=== PATIENT | female | born 1990 | race Caucasian/White ===

== ENCOUNTER 2017-09-07 10:53 | Emergency (ER) | payer SELFPAY ==
[2017-09-07 11:18] VITALS: TEMP 97.7; BMI 28.5
[2017-09-07] MEDS ORDERED: SODIUM CHLORIDE 1,000 ML IV ONE (11:30)
--- NOTE | 2017-09-07 11:36 | PDOC ---
History of Present Illness - General History Source: Patient, Family Exam Limitations: No Limitations - History of Present Illness Initial Comments: 09/07/17 11:39 The patient is a 26 year old female, accompanied by brother, with no significant past medical history, who presents to the emergency department DARRONA s/p witnessed syncopal episode earlier this morning. 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 Patient reports upon getting up she passed out for approximately 1 minute. As per brother, he caught her before she fell to the ground and the patient did not hit her head. Patient denies any residual headache, dizziness, changes in vision, or changes in speech. She denies any shortness of breath, diaphoresis, or palpitations. She denies any nausea, vomiting, fever, or chills. The patient reports 2 syncopal episodes in the past, the first 3 years ago while due to low blood pressure, and the second in May 2017 due to ear issue. Patient reports during her prior episodes she did not experience the chest discomfort, but rather a dizziness as if the room were spinning. The patient denies any history of anemia or thyroid disorders. Patient endorses travel to [place] 2 months ago and denies any sick contacts or recent illness. Allergies: NKDA Past Surgical History: None reported. Social History: Non smoker. No ETOH or recreational drug use. <Olaf Kelly - Last Filed: 09/07/17 11:39> <Gómez Pike - Last Filed: 09/07/17 13:59> - General Chief Complaint: Syncope/Near Syncope Stated Complaint: SYNCOPE Time Seen by Provider: 09/07/17 11:15 Past History <Olaf Kelly - Last Filed: 09/07/17 11:39> - Past Medical History COPD: No - Suicide/Smoking/Psychosocial Hx Smoking History: Never smoked <Gómez Piek - Last Filed: 09/07/17 13:59> - Past Medical History Allergies/Adverse Reactions: Allergies Allergy/AdvReac Type Severity Reaction Status Date / Time No Known Allergies Allergy Verified 09/07/17 11:16 Home Medications: Ambulatory Orders Nitrofurantoin Monohyd/M-Cryst [Macrobid -] 100 mg PO BID #14 capsule 09/07/17 Review of Systems - Review of Systems Constitutional: No: Chills, Fever, Night Sweats, Unintentional Wgt. Loss, Unexplained wgt Loss HEENTM: No: Recent change in vision Respiratory: No: Cough, Shortness of Breath, SOB with Exertion Cardiac (ROS): Yes: Chest Pain, Lightheadedness. No: Edema, Palpitations ABD/GI: No: Diarrhea, Nausea, Vomiting : No: Dysuria, Frequency Neurological: No: Headache, Weakness, Ataxia Endocrine: No: Symptoms Reported All Other Systems: Reviewed and Negative <Gómez Pike - Last Filed: 09/07/17 13:59> *Physical Exam - Vital Signs Last Vital Signs Temp Pulse Resp BP Pulse Ox 97.7 F 87 18 122/83 99 09/07/17 11:16 09/07/17 11:16 09/07/17 11:16 09/07/17 11:16 09/07/17 11:16 - Physical Exam Comments: 09/07/17 11:39 GENERAL: The patient is awake, alert, and fully oriented, in no acute distress. HEAD: Normal with no signs of trauma. EYES: Pupils equal, round and reactive to light, extraocular movements intact, sclera anicteric, conjunctiva clear with no pallor. ENT: Ears normal, nares patent, oropharynx clear without exudates. Moist mucous membranes. NECK: Normal range of motion, supple without lymphadenopathy, JVD, or masses. LUNGS: Breath sounds equal, clear to auscultation bilaterally. No wheeze/ crackles. HEART: Regular rate and rhythm, normal S1 and S2 without murmur or rub. ABDOMEN: Soft/nontender/nondistended. BS wnl. No guarding or rebound. No palpable masses. No hepatosplenomegaly. EXTREMITIES: Normal range of motion, no edema. No clubbing or cyanosis. No cords, erythema, or tenderness. NEUROLOGICAL: Cranial nerves II through XII grossly intact. Normal speech, normal gait. PSYCH: Normal mood, normal affect. SKIN: Warm, Dry, normal turgor, no rashes or lesions noted. <Olaf Kelly - Last Filed: 09/07/17 11:39> - Vital Signs Last Vital Signs Temp Pulse Resp BP Pulse Ox 97.7 F 87 18 122/83 99 09/07/17 11:16 09/07/17 11:16 09/07/17 11:16 09/07/17 11:16 09/07/17 11:16 <Gómez Pike - Last Filed: 09/07/17 13:59> Heart Score/ECG Review #1 ECG reviewed & interpreted by me at: 11:03 General ECG Interpretation: Sinus Rhythm, Normal Rate (83), Normal Intervals ( GA 146, qtc 423), No acute ischemic changes <Gómez Pike - Last Filed: 09/07/17 13:59> ED Treatment Course - LABORATORY CBC & Chemistry Diagram: 09/07/17 11:33 09/07/17 11:33 <Gómez Pike - Last Filed: 09/07/17 13:59> Medical Decision Making - Medical Decision Making 09/07/17 11:34 A portion of this note was documented by scribe services under my direction. I have reviewed the details of the note, within reason, and agree with the documentation with the following case summary and management plan written by me. 26-year-old healthy female presents with syncope with prodrome. 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 No injury, had some associated chest tightness, now resolved. No seizure-like activity, no recent infections or dehydration. Has had 2 prior syncopal episodes in the past, 1 while and the other earlier this year which led to an admission on telemetry, ultimately diagnosed with peripheral vertigo. At baseline, patient has no exertional chest pain or dyspnea, she did travel to months ago but has no signs or symptoms of DVT. Vital signs normal, well-appearing Heart is regular without murmur Lungs are clear Legs have no swelling or calf tenderness 26-year-old female with interview with prodrome, now resolved and hemodynamically stable. No red flags on history or physical exam, recent travel the presentation is not consistent with PE. Check labs and urine EKG IV fluids Reassess 09/07/17 13:55 Labs are within normal limits, urine negative, urinalysis notable for blood and elevated white blood cells with leuk esterase. Patient feels well, is ambulating steadily and comfortably in the emergency department. Agrees with discharge plan, we'll treat with antibiotics for UTI, understands return criteria. <Gómez Pike - Last Filed: 09/07/17 13:59> *DC/Admit/Observation/Transfer - Attestations Scribe Attestion: 09/07/17 11:40 Documentation prepared by Olaf Kelly, acting as medical hospital sales for Gómez Pike MD. <Olaf Kelly - Last Filed: 09/07/17 11:39> <Gómez Pike - Last Filed: 09/07/17 13:59> Diagnosis at time of Disposition: Syncope and collapse UTI (urinary tract infection) Qualifiers: Urinary tract infection type: acute cystitis Hematuria presence: with hematuria Qualified Code(s): N30.01 - Acute cystitis with hematuria - Discharge Dispostion Disposition: HOME Condition at time of disposition: Improved - Prescriptions Prescriptions: Nitrofurantoin Monohyd/M-Cryst [Macrobid -] 100 mg PO BID #14 capsule - Referrals Referrals: Vladimir De Los Santos MD [Staff Physician] - - Patient Instructions Printed Discharge Instructions: DI for Syncope in Adults (Fainting), DI for Urinary Tract Infection (UTI) Additional Instructions: Activity as tolerated. Stay hydrated. Blood tests and an EKG showed no acute abnormalities. A urine test showed evidence of a urinary tract infection, which could be the reason why you became lightheaded today. Take Macrobid as prescribed as antibiotic. Tylenol 1000 mg every 8 hours and/or ibuprofen 600 mg every 8 hours as needed for pain. You should follow up with your primary doctor as soon as possible regarding today's emergency department visit. If you do not have a primary doctor, consider calling Dr. De Los Santos for an appointment. Return to the emergency department for any new or concerning symptoms, particularly persistent or worsening lightheadedness, chest pain or difficulty breathing, fevers or chills, difficulty urinating.
[2017-09-07 11:46] LABS: BASO % 0.7 % (0-2.0); EOS % 5.6 % (0-4.5); HEMATOCRIT 34.6 % (32.4-45.2); HEMOGLOBIN 11.6 GM/dL (10.7-15.3); LYMPH % 29.2 % (8-40); MCH 25.8 pg (25.7-33.7); MCHC 33.7 g/dl (32.0-36.0); MEAN CELL VOLUME 76.6 fl (80-96); MEAN PLT VOLUME 8.3 fl (7.5-11.1); MONO % 8.2 % (3.8-10.2); NEUT % 56.3 % (42.8-82.8); PLATELET COUNT 326 K/MM3 (134-434); RBC 4.51 M/mm3 (3.60-5.2); RDW 15.4 % (11.6-15.6); WHITE BLOOD COUNT 9.6 K/mm3 (4.0-10.0)
[2017-09-07 12:09] LABS: ALBUMIN 3.4 g/dl (3.4-5.0); ANION GAP 5 (8-16); BILIRUBIN,TOTAL 0.4 mg/dL (0.2-1.0); BLOOD UREA NITROGEN 10 mg/dL (7-18); CHLORIDE 110 mmol/L (98-107); CO2 25 mmol/L (21-32); CREATININE 0.6 mg/dL (0.55-1.02); GLUCOSE,RANDOM 79 mg/dL (74-106); POTASSIUM 3.7 mmol/L (3.5-5.1); SGOT/AST 13 U/L (15-37); SGPT/ALT 12 U/L (12-78); SODIUM 140 mmol/L (136-145); TOT PROT 7.2 g/dl (6.4-8.2)
[2017-09-07 12:12] LABS: ALK PHOS 97 U/L (45-117)
--- NOTE | 2017-09-07 12:35 | EKG ---
Test Reason : Blood Pressure : / mmHG Vent. Rate : 083 BPM Atrial Rate : 083 BPM P-R Int : 146 ms QRS Dur : 082 ms QT Int : 360 ms P-R-T Axes : 056 014 021 degrees QTc Int : 423 ms NORMAL SINUS RHYTHM NORMAL ECG NO PREVIOUS ECGS AVAILABLE Confirmed by ROGER GAITAN MD ([id number]) on 09/07/2017 12:35:19 PM Referred By: Confirmed By:ROGER GAITAN MD
[2017-09-07 13:07] LABS: HCG,QUALITATIVE URINE NEGATIVE; URINE APPEARANCE CLEAR; URINE BILIRUBIN NEGATIVE (<2.0 mg/dL); URINE COLOR LTYELLOW; URINE GLUCOSE (UA) NEGATIVE (NEGATIVE); URINE KETONE NEGATIVE (NEGATIVE); URINE LEUK ESTERASE TRACE (NEGATIVE); URINE NITRITE NEGATIVE (NEGATIVE); URINE PROTEIN NEGATIVE (NEGATIVE); URINE UROBILINOGEN NEGATIVE mg/dL (0.2-1.0)
[2017-09-07 13:21] LABS: EPI CELLS RARE /HPF (FEW); URINE MUCUS RARE
[2017-09-07 15:51] VITALS: BP 127/83; PULSE 82
== END 2017-09-07 15:09 | disposition home or self-care (01) ==
LOC: JER 10:53
PROC: 3E0337Z Introduction of Electrolytic and Water Balance Substance into Peripheral Vein, Percutaneous Approach (ICD-10-PCS; principal; 2017-09-07)
DX: R55 Syncope and collapse (principal); N30.01 Acute cystitis with hematuria
CPT/HCPCS: 36415; 80053; 81003; 81015; 83735; 84484; 84703; 85025; 87086; 87186; 93005; 93010; 99285-25; J7030

== ENCOUNTER 2018-10-19 01:34 | Emergency (ER) | payer OTHER | END 2018-10-19 06:30 | disposition home or self-care (01) | LOC: JER 01:34 ==

== ENCOUNTER 2018-12-16 13:00 | Inpatient (IN) | payer OTHER ==
[2018-12-16] MEDS ORDERED: BENZOCAINE 28 GM HEMORRHOIDAL OINTMENT PR PRN (15:02)
[2018-12-16] MEDS ORDERED: IBUPROFEN 600 MG TABLET (FP) PO PRN (15:02)
[2018-12-16] MEDS ORDERED: IBUPROFEN 800 MG/8 ML IJ IVPB PRN (15:02)
[2018-12-16] MEDS ORDERED: CITRIC ACID/SODIUM CITRATE 30 ML UNIT-DOSE CUP PO ONE (15:02)
[2018-12-16] MEDS ORDERED: oxyCODONE HCL 5 MG TABLET PO PRN ×2 (15:02)
[2018-12-16] MEDS ORDERED: ELECTROLYTE-148 SOLN 500 ML IV ONE (15:02)
[2018-12-16] MEDS ORDERED: WITCH HAZEL 50% (TUCKS) 40 PAD/JAR PAD TP PRN (15:02)
[2018-12-16] MEDS ORDERED: diphenhydrAMINE HCL 25 MG CAPSULE (FP) PO PRN (15:02)
[2018-12-16] MEDS ORDERED: BENZOCAINE 20% 57 GM BOTTLE TP PRN (15:02)
[2018-12-16] MEDS ORDERED: ELECTROLYTE-148 SOLN 1,000 ML IV SCH (15:15)
--- NOTE | 2018-12-16 15:26 | HP ---
Past Medical History - Admission Chief Complaint: breech presentation, here for c section History Source: Patient, Medical Record Limitations to Obtaining History: No Limitations - Past Medical History Cardiovascular: No: HTN Pulmonary: No: Asthma Gastrointestinal: No: GERD Hepatobiliary: No: Hepatitis B, Hepatitis C ...: 2 ...Para: 1 Heme/Onc: Yes: Anemia Infectious Disease: No: HIV, MRSA, STD's Psych: No: Anxiety, Bipolar, Depression - Past Surgical History Past Surgical History: Yes: None Hx Myomectomy: No Hx Transabdominal Cerclage: No - Smoking History Smoking history: Never smoked Have you smoked in the past 12 months: No - Alcohol/Substance Use Hx Alcohol Use: No - Social History Usual Living Arrangement: Yes: With Spouse ADL: Independent History of Recent Travel: No Home Medications - Allergies Allergies/Adverse Reactions: Allergies Allergy/AdvReac Type Severity Reaction Status Date / Time No Known Allergies Allergy Verified 12/16/18 15:04 - Home Medications Home Medications: Ambulatory Orders Pnv No.95/Ferrous Fum/Folic AC [ Vitamin Tablet] 1 tab PO DAILY Physical Exam - Maternity Constitutional: Yes: Well Nourished, No Distress, Calm Eyes: Yes: Conjunctiva Clear HENT: Yes: Normocephalic Neck: Yes: Supple Cardiovascular: Yes: Regular Rate and Rhythm Lungs: Clear to auscultation - Abdominal Exam/OB Number of Fetuses: Single Presentation: Breech Contractions: No Category: I Accelerations: Uniform Decelerations: None - Vaginal Exam/OB Vaginal Bleediing: No - Physical Exam Psychiatric: Yes: Alert, Oriented Problem List - Problems (1) Breech presentation Code(s): O32.1XX0 - MATERNAL CARE FOR BREECH PRESENTATION, UNSP Assessment/Plan 28 y/o P1 female with SIUP at 39 weeks here for scheduled c section for breech presentation AFVSS FHTS reactive NPO Wade risks/benefits/alternatives discussed with pt, informed consent obtained, questions answered nursery and anesthesia aware
[2018-12-16 15:39] VITALS: BMI 34.1
[2018-12-16] MEDS ORDERED: PHENYLEPHRINE HCL 10 MG/1 ML SINGLE DOSE VIAL ONE (16:04)
[2018-12-16] MEDS ORDERED: ceFAZolin SODIUM 1 GM VIAL ONE (16:04)
[2018-12-16] MEDS ORDERED: morphine SULFATE/PF 0.5 MG/ML (2cc Syringe - QUVA) ONE (16:04)
[2018-12-16] MEDS ORDERED: OXYTOCIN 20 UNITS in 0.9% NS 40 UNIT/2,000 ML INFUS.BAG IV ONE (16:06)
[2018-12-16] MEDS ORDERED: ONDANSETRON 4 MG/2 ML VIAL IVPUSH PRN (16:20)
[2018-12-16] MEDS: OXYTOCIN 20 UNITS in 0.9% NS 20 UNIT/1,000 ML INFUS.BAG IV SCH ×2 (17:00→23:52)
--- NOTE | 2018-12-16 20:14 | OP ---
Operative Note - Note: Operative Date: 12/16/18 Pre-Operative Diagnosis: breech presentation of fetus, SIUP at 39 weeks Operation: primary LTCS Findings: normal b/l tubes and ovaries, live male Surgeon: Jodie Gallardo Assistant Farm Operations Manager: Jack Sharp Anesthesiologist/WHITE SHOE RAGGER: Melvin Jorge Anesthesia: Spinal Specimens Removed: placenta Estimated Blood Loss (mls): 700 Operative Report Dictated: Yes
--- NOTE | 2018-12-16 23:23 | OP ---
DATE OF OPERATION: 12/16/2018 PREOPERATIVE DIAGNOSIS: Breech presentation. POSTOPERATIVE DIAGNOSIS: Breech presentation. PROCEDURE: Primary low transverse section. SURGEON: Jodie Gallardo D.O. BIOFUELS PRODUCTION MANAGER: Roe Cowart ANESTHESIOLOGIST: Melvin Jorge M.D. ANESTHESIA: Spinal. COMPLICATIONS: None. COUNTS: Sponge, needle counts correct. ESTIMATED BLOOD LOSS: 100 mL FINDINGS: Normal bilateral tubes and ovaries. Live male . DISPOSITION: Stable to PACU. BRIEF HISTORY AND PROCEDURE: Patient is a 28-year-old female who has been seen in the office as a transfer OB and found to be in breech presentation. She was scheduled for a section of 39 weeks' gestation. She was admitted to [facility] on December 16, 2018. Consents for the procedure were signed. She was then taken back to the operating room where she was given spinal anesthesia and placed in a dorsal supine position. A Wade catheter was placed under sterile conditions. She was then prepped and draped in the usual sterile fashion. A hard timeout was performed. A Pfannenstiel skin incision was created and carried to the underlying layer of rectus fascia sharply. The rectus fascia was incised on either side of the midline, and the incision was carried in the superior lateral direction sharply. The fascia was tented upward and dissected off the underlying layer of rectus muscle sharply. The musculature was identified, laterally. The peritoneum was identified, entered bluntly, and carefully dissected to allow for adequate delivery. The bladder blade was then inserted. A low transverse incision created in the uterus which was extended in the superior lateral direction bluntly. The infant was delivered from the breech position, and was found to be in cindy breech position with the sacrum to the anterior right. Bilateral feet were identified, grasped, and gently elevated out of the abdomen to the level of the hips. The infant was delivered to the level of the axilla. The fetus was located in a 180 degree clockwise. The left arm was swept across the chest anteriorly in flexed position and delivered with ease. The was then rotated in a counterclockwise direction 180 degrees and the right arm was delivered in a similar fashion using an anterior sweeping technique, making sure the arm was flexed. The head was then delivered in the flexed position nuchal cord was clamped and cut. The infant was taken over to the warmer to be assessed by the neonatology staff who was present for the entire delivery. Apgars of 9 and 9 were assigned. The placenta was then delivered intact and manually, and the uterus was exteriorized from the abdomen, inspected and cleared of all amniotic membrane and blood clots and debris with a dry lap sponge. The hysterotomy was reapproximated in a double layer closure, using 1 Vicryl in a running, locked fashion. Second layer was 0 Biosyn in a running fashion imbricating the layers, resulting in excellent hemostasis. The posterior cul-de-sac was suctioned. The uterus was placed back into the abdomen. Bilateral gutters were inspected and cleared of all blood clot and debris. The peritoneum was reapproximated using 2-0 chromic in a running fashion. The musculature was reapproximated using 2 interrupted suture. The fascia was reapproximated using 1 Vicryl in a running fashion. The subcutaneous tissue was irrigated and reapproximated using 1 Vicryl in a running fashion. The skin was reapproximated using 0 Vicryl in a subcuticular fashion. Steri-Strips were applied. The patient tolerated the procedure well, to recovery in stable condition to the PACU after the procedure. JODIE GALLARDO DO /[id number]
[2018-12-16] MEDS: METHYLERGONOVINE MALEATE 0.2 MG/1 ML AMP IM PRN (23:52)
--- NOTE | 2018-12-17 03:47 | PN ---
Post Progress Note - Subjective Subjective: 28 yo Para 2 status post primary for breech presentation, seen and evaluated. Doing well. Post Day: 1 Type of Delivery: Primary C/S Vital Signs: Vital Signs Temperature 98.0 F 12/16/18 23:40 Pulse Rate 77 12/16/18 23:40 Respiratory Rate 20 12/17/18 03:00 Blood Pressure 123/78 12/16/18 23:40 O2 Sat by Pulse Oximetry (%) 100 12/16/18 18:30 Breast Exam: Yes: Soft Uterus: Yes: Fundus Firm Incision: Yes: Dressing dry and intact Abdomen/GI: Yes: Abdomen soft Lochia: Yes: Rubra Lochia, amount: Small Extremities: Yes: Calves non-tender Perineum: Yes: Intact Activity: Other (She's lying in bed) Problem List - Problems (1) Status post primary low transverse section Code(s): Z98.891 - HISTORY OF UTERINE SCAR FROM PREVIOUS SURGERY Assessment/Plan Status post primary Low Transverse Ambulation Analgesia as needed Continue routine post op care
[2018-12-17] MEDS: METHYLERGONOVINE MALEATE 0.2 MG/1 ML AMP IM PRN (04:29)
[2018-12-17] MEDS: OXYTOCIN 20 UNITS in 0.9% NS 20 UNIT/1,000 ML INFUS.BAG IV SCH (07:00)
[2018-12-17 08:47] LABS: HEMATOCRIT 28.1 % (32.4-45.2); HEMOGLOBIN 9.1 GM/dL (10.7-15.3); MCH 23.1 pg (25.7-33.7); MCHC 32.3 g/dl (32.0-36.0); MEAN CELL VOLUME 71.5 fl (80-96); MEAN PLT VOLUME 9.1 fl (7.5-11.1); PLATELET COUNT 226 K/MM3 (134-434); RBC 3.92 M/mm3 (3.60-5.2); RDW 15.5 % (11.6-15.6); WHITE BLOOD COUNT 11.9 K/mm3 (4.0-10.0)
[2018-12-17] MEDS: PRENATAL VITAMINS W/ FOLIC ACID TABLET (FP) PO SCH (09:06)
--- NOTE | 2018-12-17 13:41 | PN ---
Progress Note (short form) - Note Progress Note: Anesthesia POD#1 S/P under Spinal and Duramorph VSS,no N/V,good leg strength,pain is bearable. Cassia Gonzalez MD.
[2018-12-17] MEDS ORDERED: BISACODYL 10 MG SUPP.RECT PR PRN (15:03)
[2018-12-17] MEDS: IBUPROFEN 600 MG TABLET (FP) PO PRN (16:15)
[2018-12-17] MEDS: ACETAMINOPHEN 325 MG TABLET (FP) PO PRN (16:16)
[2018-12-18] MEDS: SIMETHICONE 80 MG TAB.CHEW (FP) PO PRN ×3 (00:34→19:48)
[2018-12-18] MEDS: ACETAMINOPHEN 325 MG TABLET (FP) PO PRN ×4 (00:34→19:49)
[2018-12-18] MEDS: IBUPROFEN 600 MG TABLET (FP) PO PRN ×4 (00:34→19:48)
[2018-12-18] MEDS: PRENATAL VITAMINS W/ FOLIC ACID TABLET (FP) PO SCH (09:57)
--- NOTE | 2018-12-18 10:26 | PN ---
Post Progress Note - Subjective Subjective: 28 yo Para 2 status post primary , seen and evaluated. Doing well. Post Day: 2 Type of Delivery: Primary C/S Vital Signs: Vital Signs Temperature 98.3 F 12/17/18 22:00 Pulse Rate 102 H 12/17/18 22:00 Respiratory Rate 20 12/17/18 22:00 Blood Pressure 119/82 12/17/18 22:00 O2 Sat by Pulse Oximetry (%) 100 12/16/18 18:30 Breast Exam: Yes: Soft Uterus: Yes: Fundus Firm Incision: Yes: Dressing dry and intact Abdomen/GI: Yes: Abdomen soft Lochia: Yes: Rubra Lochia, amount: Small Extremities: Yes: Calves non-tender Perineum: Yes: Intact Activity: Ambulating - Labs Labs: CBC WBC 11.9 K/mm3 (4.0-10.0) H 12/17/18 07:49 RBC 3.92 M/mm3 (3.60-5.2) 12/17/18 07:49 Hgb 9.1 GM/dL (10.7-15.3) L 12/17/18 07:49 Hct 28.1 % (32.4-45.2) L 12/17/18 07:49 MCV 71.5 fl (80-96) L 12/17/18 07:49 MCH 23.1 pg (25.7-33.7) L 12/17/18 07:49 MCHC 32.3 g/dl (32.0-36.0) 12/17/18 07:49 RDW 15.5 % (11.6-15.6) 12/17/18 07:49 Plt Count 226 K/MM3 (134-434) 12/17/18 07:49 MPV 9.1 fl (7.5-11.1) 12/17/18 07:49 Problem List - Problems (1) Status post primary low transverse section Code(s): Z98.891 - HISTORY OF UTERINE SCAR FROM PREVIOUS SURGERY Assessment/Plan Status post primary ( Breech ) Ambulation Analgesia as needed Continue routine post op care
[2018-12-18] MEDS ORDERED: SENNOSIDES/DOCUSATE COMBO (SENNA PLUS) TABLET (UD) PO PRN (22:00)
[2018-12-19] MEDS: OXYTOCIN 20 UNITS in 0.9% NS 20 UNIT/1,000 ML INFUS.BAG IV SCH ×2 (01:17→01:18)
[2018-12-19] MEDS: SIMETHICONE 80 MG TAB.CHEW (FP) PO PRN ×2 (04:06→20:19)
[2018-12-19] MEDS: ACETAMINOPHEN 325 MG TABLET (FP) PO PRN ×3 (04:06→20:19)
[2018-12-19] MEDS: IBUPROFEN 600 MG TABLET (FP) PO PRN ×3 (04:07→20:20)
[2018-12-19 09:27] LABS: HEMATOCRIT 25.4 % (32.4-45.2); HEMOGLOBIN 8.4 GM/dL (10.7-15.3); MCH 23.5 pg (25.7-33.7); MEAN CELL VOLUME 71.3 fl (80-96); MEAN PLT VOLUME 8.7 fl (7.5-11.1); PLATELET COUNT 270 K/MM3 (134-434); RBC 3.56 M/mm3 (3.60-5.2); RDW 15.3 % (11.6-15.6); WHITE BLOOD COUNT 8.9 K/mm3 (4.0-10.0)
--- NOTE | 2018-12-19 10:19 | PN ---
Post Progress Note - Subjective Subjective: 28 yo Para 2 status post delivery for Breech presentation, seen and evaluated. Doing well. Post Day: 3 Type of Delivery: Primary C/S Vital Signs: Vital Signs Temperature 98.6 F 12/18/18 22:00 Pulse Rate 84 12/18/18 22:00 Respiratory Rate 18 12/18/18 22:00 Blood Pressure 135/81 12/18/18 22:00 O2 Sat by Pulse Oximetry (%) 100 12/16/18 18:30 Breast Exam: Yes: Soft Uterus: Yes: Fundus Firm Incision: Yes: Dressing dry and intact Abdomen/GI: Yes: Abdomen soft, Tolerating PO Lochia: Yes: Rubra Lochia, amount: Small Extremities: Yes: Calves non-tender Activity: Ambulating - Labs Labs: CBC WBC 8.9 K/mm3 (4.0-10.0) 12/19/18 08:54 RBC 3.56 M/mm3 (3.60-5.2) L 12/19/18 08:54 Hgb 8.4 GM/dL (10.7-15.3) L 12/19/18 08:54 Hct 25.4 % (32.4-45.2) L 12/19/18 08:54 MCV 71.3 fl (80-96) L 12/19/18 08:54 MCH 23.5 pg (25.7-33.7) L 12/19/18 08:54 MCHC 33.0 g/dl (32.0-36.0) 12/19/18 08:54 RDW 15.3 % (11.6-15.6) 12/19/18 08:54 Plt Count 270 K/MM3 (134-434) 12/19/18 08:54 MPV 8.7 fl (7.5-11.1) 12/19/18 08:54 Problem List - Problems (1) Status post primary low transverse section Code(s): Z98.891 - HISTORY OF UTERINE SCAR FROM PREVIOUS SURGERY Assessment/Plan Status post primary Low Transverse Ambulation Analgesia as needed Continue routine post op care
[2018-12-19] MEDS: PRENATAL VITAMINS W/ FOLIC ACID TABLET (FP) PO SCH (10:55)
--- NOTE | 2018-12-20 05:34 | DS ---
Physical Exam-WICK TENDER Vital Signs: Vital Signs Temperature 98.3 F 12/19/18 20:46 Pulse Rate 99 H 12/19/18 20:46 Respiratory Rate 18 12/19/18 20:46 Blood Pressure 126/78 12/19/18 20:46 O2 Sat by Pulse Oximetry (%) 100 12/16/18 18:30 Constitutional: Yes: Well Nourished Eyes: Yes: Conjunctiva Clear HENT: Yes: Atraumatic Neck: Yes: Supple Cardiovascular: Yes: Regular Rate and Rhythm Respiratory: Yes: Regular Gastrointestinal: Yes: Normal Bowel Sounds ...Rectal Exam: Yes: WNL Renal/: Yes: WNL Pelvis: Yes: WNL External Genitalia: Yes: Normal Vaginal Exam: Yes: Normal Cervix: Yes: Normal Uterus: Yes: Firm ....Post : Yes: Uterus firm, Slight lochia rubra Breast(s): Yes: WNL Musculoskeletal: Yes: WNL Extremities: Yes: WNL Wound/Incision: Yes: Well Approximated, Steri Strips (in place) Neurological: Yes: Alert, Oriented ...Motor Strength: WNL Psychiatric: Yes: Alert, Oriented Labs: CBC, BMP 12/19/18 08:54 Delivery - Delivery Type of Anesthesia: Spinal Episiotomy/Laceration: None EBL (cc): 700 Delivery, Single - Stages of Labor Date of Delivery: 12/16/18 Time of Delivery: 16:25 Time Placenta Delivered: 16:26 - Condition of Horologist/Boiler Engineer Present: Yes Name: Adam Torres Gender: Male Weight: 8 lb 7 oz Total Hours ROM (Hrs/Mins): 0/2 - 1 Minute Total Score: 9 5 Minutes Total Score: 9 - Feeding Plan Initial Plan: Exclusive throughout hospitalization Discharge Summary Reason For Visit: Current Active Problems Breech presentation (Acute) Status post primary low transverse section (Acute) Procedures: Principal: Primary Low Transverse Hospital Course: Routine post op care Condition: Good - Instructions Diet, Activity, Other Instructions: Regular diet No driving, no lifting x 4 weeks F/U with MD in one week Disposition: HOME - Home Medications Comprehensive Discharge Medication List: Ambulatory Orders Pnv No.95/Ferrous Fum/Folic AC [ Vitamin Tablet] 1 tab PO DAILY
[2018-12-20] MEDS: ACETAMINOPHEN 325 MG TABLET (FP) PO PRN (08:32)
[2018-12-20] MEDS: IBUPROFEN 600 MG TABLET (FP) PO PRN (08:33)
[2018-12-20] MEDS: SIMETHICONE 80 MG TAB.CHEW (FP) PO PRN (08:34)
[2018-12-20] MEDS: PRENATAL VITAMINS W/ FOLIC ACID TABLET (FP) PO SCH (10:02)
[2018-12-20 12:37] VITALS: BP 130/79; PULSE 87; TEMP 97.9
--- NOTE | 2018-12-21 15:35 | PATH ---
Surgical Pathology Report Patient Name: ARLIN STILES [facility]. Rec. #: [id number] /Age/Gender: 1990 (Age: 28) / F Account: [id number] Location: [facility] OBS/TRIM OPERATOR Taken: 12/16/2018 Received: 12/17/2018 Reported: 12/21/2018 Physicians: Jodie Gallardo M.D. Specimen(s) Received PLACENTA Clinical History 08/2014-PIH , term , breech presentation Final Diagnosis PLACENTA: THIRD TRIMESTER PLACENTA WITH CHRONIC DECIDUITIS. TRIVASCULAR CORD. MEMBRANES WITH NO DIAGNOSTIC ABNORMALITIES. Electronically Signed Jeremy Taylor M.D. Gross Description The specimen is received fresh labeled placenta and is a 493 gram, 15.0 x 14.0 x 3.7 cm. placenta with attached membranes and umbilical cord. The attached membranes are mccloud, translucent with focal opacities and insert marginally. The umbilical cord measures 29 cm. in length and averages 1.2 cm. in diameter. The cord inserts eccentrically, 2.5 cm. to the nearest margin. No true knots or strictures are identified. Cut surface of the umbilical cord reveals 3 vessels. The surface is smith-blue with minimal fibrin deposition and appropriate caliber vessels. The maternal surface is red-brown with focal defects. Sectioning reveals red-brown, spongy parenchyma. No lesions are identified. Shipping And Receiving Operator sections are submitted in three cassettes as follows: 1- membrane rolls and umbilical cord; 2-3- full thickness sections of placenta. 12/20/2018 [facility]12/20/2018
== END 2018-12-20 13:30 | disposition home or self-care (01) | DRG 540 ==
LOC: JLDR 14:10 → J3W 19:55
PROVIDERS: ADMIT Obstetrics & Gynecology; ATTEND Obstetrics & Gynecology
PROC: 10D00Z1 Extraction of Products of Conception, Low, Open Approach (ICD-10-PCS; principal; 2018-12-16)
DX: O32.1XX0 Maternal care for breech presentation, not applicable or unspecified (principal); Z3A.39 39 weeks gestation of pregnancy; Z37.0 Single live birth
CPT/HCPCS: 36415; 85027; 88307-TC